=== PATIENT | male | born 1980 | race Caucasian/White ===

== ENCOUNTER 2020-07-04 16:53 | Emergency (ER) | payer OTHER ==
[~2020-07-04] VITALS: Ht 177.8 cm; Wt 79.4 kg
[~2020-07-04 16:53] MED LIST: CLARITIN10 MG PO; CYCLOBENZAPRINE10 MG PO; MELOXICAM15 MG PO; OXYCODONE-ACET1 EAC3 PO; PEPCID20 MG PO
[2020-07-04] MEDS ORDERED: CRUTCH1 EACH MISC (19:14)
== END 2020-07-04 19:33 | disposition home or self-care (01) ==
LOC: ED 16:53
DX: S93.402A Sprain of unspecified ligament of left ankle, initial encounter (principal); X50.9XXA Other and unspecified overexertion or strenuous movements or postures, initial encounter; K21.9 Gastro-esophageal reflux disease without esophagitis; Z87.891 Personal history of nicotine dependence; Z88.8 Allergy status to other drugs, medicaments and biological substances; Z79.899 Other long term (current) drug therapy
CPT/HCPCS: 73610; 99283-25; A9270